=== PATIENT | female | born 1990 | race Caucasian/White ===

== ENCOUNTER 2020-07-27 11:51 | Emergency (ER) | payer MEDICAID ==
[~2020-07-27] VITALS: Ht 149.9 cm; Wt 44.5 kg
[2020-07-27 11:51] VITALS: BP_SYST 113
[2020-07-27] MEDS ORDERED: HYDROcodone/ACETAMIN 5-325 MG TAB (NORCO/ VICODIN) PO ONE (12:15)
[2020-07-27] MEDS ORDERED: LIDOCAINE/EPI 1% 1:100000 20 ML VIAL INJ ONE (12:15)
[2020-07-27 12:42] VITALS: BP_SYST 113
== END 2020-07-27 12:45 | disposition home or self-care (01) ==
LOC: SED 11:51
DX: L02.414 Cutaneous abscess of left upper limb (principal)
CPT/HCPCS: 99283

== ENCOUNTER 2020-07-28 21:04 | Emergency (ER) | payer MEDICAID ==
[~2020-07-28] VITALS: Ht 149.9 cm; Wt 44.5 kg
[2020-07-28 21:10] VITALS: BP_SYST 99
[2020-07-28] MEDS ORDERED: NACL 0.9% 1,000 ML IV ONE (23:45)
[2020-07-28] MEDS ORDERED: CLINDAMYCIN 600 mg/50mL D5W 50 ML IV ONE (23:45)
[2020-07-29] MEDS ORDERED: VANCOMYCIN HCL 1,000 MG in NS 250 ML IV ONE (00:15)
[2020-07-29 00:17] LABS: CALCIUM 9.1 mg/dL (8.4-11.0); CREATININE 0.63 mg/dL (0.55-1.30); POTASSIUM 4.1 mmol/L (3.5-5.1)
[2020-07-29 00:19] LABS: BASOPHILS % (AUTO) 0.4 % (0.0-2.0); EOSINOPHILS # (AUTO) 0.1 K/uL (0.0-0.4); EOSINOPHILS % (AUTO) 0.6 % (0.0-4.0); HEMATOCRIT 38.8 % (36-48); LYMPHOCYTES # (AUTO) 1.7 K/uL (1.0-5.5); LYMPHOCYTES % (AUTO) 15.1 % (20.5-51.5); MEAN CORPUSCULAR HEMOGLOBIN 30 pg (27-31); MEAN CORPUSCULAR HGB CONC 34 % (32-36); MEAN CORPUSCULAR VOLUME 91 fL (79.0-98.0); MONOCYTES # (AUTO) 0.8 K/uL (0.0-1.0); MONOCYTES % (AUTO) 6.8 % (1.7-9.3); NEUTROPHILS # (AUTO) 8.7 K/uL (1.8-7.7); NEUTROPHILS % (AUTO) 77.1 % (40.0-70.0); PLATELET COUNT (AUTO) 200 K/uL (130-430); RED BLOOD CELL COUNT(AUTO) 4.27 MIL/uL (4.2-6.2); RED CELL DISTRIBUTION WIDTH 12.8 % (9.0-15.0); WHITE BLOOD COUNT (AUTO) 11.3 K/uL (4.8-10.8)
[2020-07-29 00:31] LABS: TOTAL BILIRUBIN 0.3 mg/dL (0.0-1.0)
[2020-07-29] MEDS ORDERED: VANCOMYCIN HCL 1000 MG/VIAL IV ONE (00:42)
[2020-07-29] MEDS ORDERED: DIPHENHYDRAMINE INJ 50 MG/ML VIAL IVP ONE (00:45)
[2020-07-29] MEDS ORDERED: MORPHINE 2 MG/ML INJ. SYRINGE IVP ONE (01:30)
[2020-07-29 01:45] VITALS: BP_SYST 104
== END 2020-07-29 01:45 | disposition home or self-care (01) ==
LOC: SED 21:04
DX: T36.8X5A Adverse effect of other systemic antibiotics, initial encounter (principal); L03.114 Cellulitis of left upper limb; L02.424 Furuncle of left upper limb; Z88.0 Allergy status to penicillin; Z88.8 Allergy status to other drugs, medicaments and biological substances; Y92.89 Other specified places as the place of occurrence of the external cause
CPT/HCPCS: 36415; 80053; 83605; 85025; 87040; 87070; 87075; 96365; 96375; 99284; J1200; J3370; J7030; 87186-TC